=== PATIENT | female | born 1945 | race Caucasian/White ===

== ENCOUNTER → 2019-04-10 | Day surgery (SDC) | payer MEDICARE, BC ==
[~2019-04-10] MED LIST: Lactated Ringers 1,000 ML IV SCH; Lidocaine 1% 4 ML ONE; Lidocaine 1%/Sod Bicarbonate in NS 8.4% 1 ML Syringe IDERM PRN; Midazolam 1 MG/ML 2 ML SDV ONE; Propofol 200 MG/20 ML SDV ONE; Sodium Chloride 0.9% 10 ML Syringe FLUSH PRN; fentaNYL 100 MCG/2 ML SDV ONE
--- NOTE | 2019-04-10 07:55 | PCM.PREANE ---
Preanesthetic Assessment - Anesthesia/Transfusion/Family Hx Anesthesia History: Prior Anesthesia Reaction Type of Anesthesia Reaction: Excessive Nausea/Vomiting Family History of Anesthesia Reaction: No Transfusion History: No Prior Transfusion(s) Intubation History: Unknown - Review of Systems General: No Symptoms Pulmonary: No Symptoms Cardiovascular: No Symptoms Gastrointestinal: No Symptoms (GERD- occasionally takes tums) Neurological: No Symptoms (History of vertigo), Dizziness Other: Reports: Thyroid Problems - Physical Assessment NPO Status Date: 04/10/19 NPO Status Time: 04:30 Vital Signs: Last Vital Signs Temp 36.4 C 04/10/19 07:00 Pulse 67 04/10/19 07:00 Resp 16 04/10/19 07:00 BP 134/62 04/10/19 07:00 Pulse Ox 99 04/10/19 07:00 Height: 1.57 m Weight: 53.524 kg ASA Class: 2 Mental Status: Alert & Oriented x3 Airway Class: Mallampati = 2 Dentition: Reports: Normal Dentition, Caries Thyro-Mental Finger Breadths: 3 Mouth Opening Finger Breadths: 3 ROM/Head Extension: Full Lungs: Clear to Auscultation, Normal Respiratory Effort Cardiovascular: Regular Rate, Regular Rhythm, No Murmurs - Imaging/EKG Impressions: EKG: SR rate=55 CXR: Emphysematous change - Allergies Allergies/Adverse Reactions: Allergies Allergy/AdvReac Type Severity Reaction Status Date / Time Iodinated Contrast Media Allergy Hives Verified 04/09/19 15:13 Sulfa (Sulfonamide Allergy Hives Verified 04/09/19 15:13 Antibiotics) - Anesthesia Plan Pre-Op Medication Ordered: None - Acknowledgements Anesthesia Type Planned: MAC Pt an Appropriate Candidate for the Planned Anesthesia: Yes Alternatives and Risks of Anesthesia Discussed w Pt/Guardian: Yes Pt/Guardian Understands and Agrees with Anesthesia Plan: Yes PreAnesthesia Questionnaire HEENT History: Reports: Impaired Vision, Other (See Below) Other HEENT History: cataract surgery, wears glasses, history of burning tongue syndrome Cardiovascular History: Reports: Other (See Below) Other Cardiovascular History: chest wall pain Respiratory History: Reports: None Gastrointestinal History: Reports: Chronic Constipation, Colon Polyp Genitourinary History: Reports: None 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 (See Below) Other OB/BYN History: atrophic vaginitis Musculoskeletal History: Reports: Osteoporosis Neurological History: Reports: None Psychiatric History: Reports: Other (See Below) Other Psychiatric History: contact dermatitis, herpes zoster, onchomycosis, skin infection Endocrine/Metabolic History: Reports: Hypothyroidism Hematologic History: Reports: None Immunologic History: Reports: None Oncologic (Cancer) History: Reports: None Dermatologic History: Reports: None - Past Surgical History Head Surgeries/Procedures: Reports: None Cardiovascular Surgical History: Reports: None Respiratory Surgical History: Reports: None GI Surgical History: Reports: Appendectomy, Colonoscopy Female Surgical History: Reports: Hysterectomy, Oophorectomy Male Surgical History: Reports: None Endocrine Surgical History: Reports: None Neurological Surgical History: Reports: None Musculoskeletal Surgical History: Reports: Other (See Below) Other Musculoskeletal Surgeries/Procedures:: foot surgery, neck surgery Oncologic Surgical History: Reports: None Dermatological Surgical History: Reports: None - SUBSTANCE USE Smoking Status *Q: Never Smoker Recreational Drug Use History: No - HOME MEDS Home Medications: Home Meds Alendronate [Fosamax] 35 mg PO Q7D 04/09/19 [History] Aspirin [Ecotrin EC] 81 mg PO DAILY 04/09/19 [History] Calcium Carbonate/Vitamin D3 [Calcium 600-Vit D3 500 Softgel] 1 cap PO TID 04/09 [History] Flaxseed 1 dose PO QAM 04/09/19 [History] Levothyroxine [Synthroid] 44 mcg PO TUTH 04/09/19 [History] Levothyroxine [Synthroid] 88 mcg PO SUMOWEFRSA 04/09/19 [History] Lutein 10 mg PO DAILY 04/09/19 [History] Multivitamin [Daily Armand] 1 tab PO DAILY 04/09/19 [History] Psyllium Husk [Metamucil] 1 dose PO QAM 04/09/19 [History] - CURRENT (IN HOUSE) MEDS Current Meds: Current Medications Lactated Ringer's (Ringers, Lactated) 1,000 mls @ 125 mls/hr IV ASDIRECTED ARTHUR Stop: 04/10/19 23:00 Last Admin: 04/10/19 07:22 Dose: 125 mls/hr Lidocaine/Sodium Bicarbonate (Buffered Lidocaine 1% In Ns 8.4%) 0.25 ml IDERM ONETIME PRN PRN Reason: Prior to IV Start Stop: 04/10/19 18:00 Last Admin: 04/10/19 07:22 Dose: 0.25 ml Sodium Chloride (Saline Flush) 10 ml FLUSH ASDIRECTED PRN PRN Reason: Keep Vein Open Stop: 04/10/19 18:00 Discontinued Medications Fentanyl (Sublimaze) Confirm Administered Dose 100 mcg .ROUTE .STK-MED ONE Stop: 04/10/19 07:43 Lidocaine HCl (Xylocaine-Mpf 1%) Confirm Administered Dose 4 mls @ as directed .ROUTE .STK-MED ONE Stop: 04/10/19 07:43 Midazolam HCl (Versed 1 Mg/Ml) Confirm Administered Dose 2 mg .ROUTE .STK-MED ONE Stop: 04/10/19 07:43 Propofol (Diprivan 20 Ml) Confirm Administered Dose 200 mg .ROUTE .STK-MED ONE Stop: 04/10/19 07:43
--- NOTE | 2019-04-10 08:45 | PCM48HPAN ---
Post Anesthesia Note - EVALUATION WITHIN 48HRS OF ANESTHETIC Vital Signs in Normal Range: Yes Patient Participated in Evaluation: Yes Respiratory Function Stable: Yes Airway Patent: Yes Cardiovascular Function Stable: Yes Hydration Status Stable: Yes Pain Control Satisfactory: Yes Nausea and Vomiting Control Satisfactory: Yes Mental Status Recovered: Yes Vital Signs: Last Vital Signs Temp 36.4 C 04/10/19 07:00 Pulse 67 04/10/19 07:00 Resp 16 04/10/19 07:00 BP 134/62 04/10/19 07:00 Pulse Ox 99 04/10/19 07:00 - COMMENTS/OBSERVATIONS Free Text/Narrative:: no anesthesia complications noted
--- NOTE | 2019-04-10 08:49 | PCM.PRNOTE ---
- Free Text/Narrative Note: Date: 04/10/2019 Endoscopist: Eddie Jarvis MD Procedure: screening colonoscopy Findings: excellent prep. Cecum reached. Two subcentimeter polypoid lesions in the sigmoid biopsied with cold forceps. Internal hemorrhoids and small soft anal skin tag. Detailed Report: The patient was taken to the GI suite and placed in left lateral decubitus position. Timeout was performed and monitored sedation initiated. Visual inspection of anus revealed soft anterior skin tag. Digital rectal exam was unremarkable. The colonoscope was advanced to the cecum. Prep was excellent. All mucosal surfaces were carefully inspected on slow retraction of the scope. Small subcentimeter sessile polypoid lesions that resembled hyperplastic polyps in the sigmoid colon were biopsied with cold forceps. No diverticular disease noted. Internal hemorrhoids noted on retroflexion of the scope in the rectum. The patient tolerated the procedure well. Eddie Jarvis MD General Surgery
== END | disposition home or self-care (01) ==
LOC: JD.SDS 06:57
PROVIDERS: ATTEND Surgery
DX: Z12.11 Encounter for screening for malignant neoplasm of colon (principal); K64.8 Other hemorrhoids; K64.4 Residual hemorrhoidal skin tags; K63.5 Polyp of colon; E03.9 Hypothyroidism, unspecified; M81.0 Age-related osteoporosis without current pathological fracture; Z86.010 Personal history of colon polyps; Z88.2 Allergy status to sulfonamides; Z91.041 Radiographic dye allergy status; Z79.82 Long term (current) use of aspirin; Z79.899 Other long term (current) drug therapy
CPT/HCPCS: G0121; J2001; J2704; J3010; J7120; J2250

== ENCOUNTER 2020-06-25 21:58 | Emergency (ER) | payer MEDICARE, BC ==
[2020-06-25] MEDS ORDERED: Ondansetron 4 MG/2 ML SDV IVPUSH ONE (22:15)
--- NOTE | 2020-06-25 22:23 | EDM.PDOC ---
ED HPI GENERAL MEDICAL PROBLEM - General Chief Complaint: Cardiovascular Problem Stated Complaint: RHB Time Seen by Provider: 06/25/20 22:15 Source of Information: Reports: Patient History Limitations: Reports: No Limitations - History of Present Illness INITIAL COMMENTS - FREE TEXT/NARRATIVE: The patient presents with palpitations. She was at home with her watching TV and she felt her heart racing and pounding. She checked her heart rate and it was 120s and it stayed that way for about an hour. She then got nauseated and vomited. She has no fever, chills, cough, congestion, chest pain, shortness of breath or abdominal pain. This has never happened to her before and she feels good now. She has a history of hypothyroidism. She has no history of heart disease or hypertension. Onset: Sudden Duration: Hour(s): Severity: Moderate Improves with: Reports: None Worsens with: Reports: None Associated Symptoms: Reports: Nausea/Vomiting. Denies: Chest Pain, Cough, Fever/Chills, Headaches, Shortness of Breath - Related Data Allergies Allergy/AdvReac Type Severity Reaction Status Date / Time Iodinated Contrast Media Allergy Severe Hives Verified 06/25/20 22:07 nitrofurantoin Allergy Severe Hives Verified 06/25/20 22:07 [From Macrobid] Sulfa (Sulfonamide Allergy Severe Hives Verified 06/25/20 22:07 Antibiotics) Home Meds: Home Meds Alendronate [Fosamax] 35 mg PO Q7D 04/09/19 [History] Aspirin [Ecotrin EC] 81 mg PO DAILY 04/09/19 [History] Calcium Carbonate/Vitamin D3 [Calcium 600-Vit D3 500 Softgel] 1 cap PO TID 04/09/19 [History] Flaxseed 1 dose PO QAM 04/09/19 [History] Levothyroxine [Synthroid] 44 mcg PO TUTH 04/09/19 [History] Levothyroxine [Synthroid] 88 mcg PO SUMOWEFRSA 04/09/19 [History] Lutein 10 mg PO DAILY 04/09/19 [History] Multivitamin [Daily Armand] 1 tab PO DAILY 04/09/19 [History] Psyllium Husk [Metamucil] 1 dose PO QAM 04/09/19 [History] Past Medical History HEENT History: Reports: Impaired Vision, Other (See Below) Other HEENT History: cataract surgery, wears glasses, history of burning tongue syndrome Cardiovascular History: Reports: Other (See Below) Other Cardiovascular History: chest wall pain Respiratory History: Reports: None Gastrointestinal History: Reports: Chronic Constipation, Colon Polyp Genitourinary History: Reports: None 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 (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) 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: atrophic vaginitis Musculoskeletal History: Reports: Osteoporosis Neurological History: Reports: None Psychiatric History: Reports: Other (See Below) Other Psychiatric History: contact dermatitis, herpes zoster, onchomycosis, skin infection Endocrine/Metabolic History: Reports: Hypothyroidism Hematologic History: Reports: None Immunologic History: Reports: None Oncologic (Cancer) History: Reports: None Dermatologic History: Reports: None - Past Surgical History Head Surgeries/Procedures: Reports: None Cardiovascular Surgical History: Reports: None Respiratory Surgical History: Reports: None GI Surgical History: Reports: Appendectomy, Colonoscopy Female Surgical History: Reports: Hysterectomy, Oophorectomy Endocrine Surgical History: Reports: None Neurological Surgical History: Reports: None Musculoskeletal Surgical History: Reports: Other (See Below) Other Musculoskeletal Surgeries/Procedures:: foot surgery, neck surgery Oncologic Surgical History: Reports: None Dermatological Surgical History: Reports: None Social & Family History - Tobacco Use Tobacco Use Status *Q: Never Tobacco User - Caffeine Use Caffeine Use: Reports: Coffee - Recreational Drug Use Recreational Drug Use: No ED ROS GENERAL - Review of Systems Review Of Systems: See Below Constitutional: Reports: No Symptoms HEENT: Reports: No Symptoms Respiratory: Reports: No Symptoms Cardiovascular: Reports: Palpitations. Denies: Chest Pain Endocrine: Reports: No Symptoms GI/Abdominal: Reports: Nausea, Vomiting. Denies: Abdominal Pain, Diarrhea : Reports: No Symptoms Musculoskeletal: Reports: No Symptoms Skin: Reports: No Symptoms ED EXAM, GENERAL - Physical Exam Exam: See Below Exam Limited By: No Limitations General Appearance: Alert, No Apparent Distress Ears: Normal External Exam Nose: Normal Inspection Head: Atraumatic, Normocephalic Neck: Normal Inspection Respiratory/Chest: No Respiratory Distress, Lungs Clear, Normal Breath Sounds Cardiovascular: Regular Rate, Rhythm, No Edema, No Murmur GI/Abdominal: Soft, Non-Tender, No Organomegaly, No Mass Back Exam: Normal Inspection #1 Interpretation EKG Date: 06/25/20 Time: 22:08 Rhythm: NSR Rate (Beats/Min): 96 [place]: Normal P-Wave: Present QRS: Normal ST-T: Normal QT: Normal Course - Vital Signs Last Recorded V/S: Last Vital Signs Temp 98.2 F 06/25/20 22:04 Pulse 101 H 06/25/20 22:04 Resp 16 06/25/20 22:04 BP 154/74 H 06/25/20 22:04 Pulse Ox 100 06/25/20 22:04 - Orders/Labs/Meds Orders: Active Orders 24 hr Category Date Time Status Cardiac Monitoring [RC] . DIRECTED Care 06/25/20 22:15 Active EKG 12 Lead [EKG Documentation Completion] [RC] URGENT Care 06/25/20 22:00 Active Holter Monitor 48 Hours [RC] .PRN Care 06/25/20 23:20 Ordered Labs: Laboratory Tests 06/25/20 06/25/20 Range/Units 22:28 22:28 WBC 6.18 (3.98-10.04) K/mm3 RBC 4.38 (3.98-5.22) M/mm3 Hgb 14.0 (11.2-15.7) gm/dl Hct 42.4 (34.1-44.9) % MCV 96.8 H (79.4-94.8) fl MCH 32.0 (25.6-32.2) pg MCHC 33.0 (32.2-35.5) g/dl RDW Std Deviation 49.5 H (36.4-46.3) fL Plt Count 247 (182-369) K/mm3 MPV 9.2 L (9.4-12.3) fl Neut % (Auto) 67.0 (34.0-71.1) % Lymph % (Auto) 19.9 (19.3-51.7) % [place] % (Auto) 9.4 (4.7-12.5) % Eos % (Auto) 3.1 (0.7-5.8) Baso % (Auto) 0.3 (0.1-1.2) % Neut # (Auto) 4.14 (1.56-6.13) K/mm3 Lymph # (Auto) 1.23 (1.18-3.74) K/mm3 [place] # (Auto) 0.58 H (0.24-0.36) K/mm3 Eos # (Auto) 0.19 (0.04-0.36) K/mm3 Baso # (Auto) 0.02 (0.01-0.08) K/mm3 Sodium 143 (136-145) mEq/L Potassium 3.4 L (3.5-5.1) mEq/L Chloride 107 (98-107) mEq/L Carbon Dioxide 25 (21-32) mEq/L Anion Gap 14.4 (5-15) BUN 13 (7-18) mg/dL Creatinine 0.8 (0.55-1.02) mg/dL Est Cr Clr Drug Dosing 49.49 mL/min Estimated GFR (MDRD) > 60 (>60) mL/min BUN/Creatinine Ratio 16.3 (14-18) Glucose 146 H (83-115) mg/dL Calcium 8.8 (8.5-10.1) mg/dL Magnesium 1.8 (1.8-2.4) mg/dl Total Bilirubin 0.2 (0.2-1.0) mg/dL AST 13 L (15-37) U/L ALT 25 (14-59) U/L Alkaline Phosphatase 71 (46-116) U/L Troponin I < 0.017 (0.00-0.056) ng/mL Total Protein 6.8 (6.4-8.2) g/dl Albumin 3.6 (3.4-5.0) g/dl Globulin 3.2 gm/dL Albumin/Globulin Ratio 1.1 (1-2) TSH 3rd Generation 3.012 (0.358-3.74) uIU/mL Meds: Medications Discontinued Medications Generic Name Dose Route Start Last Admin Trade Name Alexq PRN Reason Stop Dose Admin Ondansetron HCl 4 mg 06/25/20 22:15 Zofran IVPUSH 06/25/20 22:16 ONETIME ONE - Re-Assessments/Exams Free Text/Narrative Re-Assessment/Exam: 06/25/20 22:23 I ordered an EKG and labs. Her EKG shows a NSR with no acute changes. I did offer her some zofran for nausea but she said she feels better and does not want any. 06/25/20 23:20 Her CBC and CMP look good. Her troponin is negative and her TSH is normal. I will get her a holter monitor and have her follow up with Kathy Keller in clinic. Departure - Departure Time of Disposition: 23:25 Disposition: Home, Self-Care 01 Condition: Good Clinical Impression: Palpitations Referrals: Kathy Keller, FLEET TECHNICIAN [Primary Care Provider] - 1 Day Forms: ED Department Discharge Additional Instructions: Take your medications as prescribed. Wear the holter monitor for 2 days. Follow up with Kathy tomorrow. Please return if you are worse. Sepsis Event Note (ED) - Evaluation Sepsis Screening Result: No Definite Risk - Focused Exam Vital Signs: Vital Signs Temp Pulse Resp BP Pulse Ox 06/25/20 22:04 98.2 F 101 H 16 154/74 H 100 - My Orders Last 24 Hours: My Active Orders 06/25/20 22:00 EKG 12 Lead [EKG Documentation Completion] [RC] URGENT 06/25/20 22:15 Cardiac Monitoring [RC] . DIRECTED 06/25/20 23:20 Holter Monitor 48 Hours [RC] .PRN - Assessment/Plan Last 24 Hours: My Active Orders 06/25/20 22:00 EKG 12 Lead [EKG Documentation Completion] [RC] URGENT 06/25/20 22:15 Cardiac Monitoring [RC] . DIRECTED 06/25/20 23:20 Holter Monitor 48 Hours [RC] .PRN
== END 2020-06-25 23:26 | disposition home or self-care (01) ==
LOC: JD.ED 21:58
DX: R00.2 Palpitations (principal); E03.9 Hypothyroidism, unspecified; Z91.041 Radiographic dye allergy status; Z88.1 Allergy status to other antibiotic agents; Z88.2 Allergy status to sulfonamides; Z79.82 Long term (current) use of aspirin; Z79.899 Other long term (current) drug therapy
CPT/HCPCS: 36415; 80053; 83735; 84443; 84484; 85025; 93005; 93010; 93225; 93226; 99284; 99285-25

== ENCOUNTER 2020-11-08 14:08 | Observation (INO) | payer MEDICARE, BC ==
[2020-11-08] MEDS ORDERED: Sodium Chloride 0.9% 10 ML Syringe FLUSH PRN (14:41)
[2020-11-08] MEDS ORDERED: Sodium Chloride 0.9% 500 ML IV SCH (14:45)
--- NOTE | 2020-11-08 16:02 | EDM.PDOC ---
ED HPI GENERAL MEDICAL PROBLEM - General Chief Complaint: General Stated Complaint: WEAK AND SHAKIE Time Seen by Provider: 11/08/20 14:20 Source of Information: Reports: Patient History Limitations: Reports: No Limitations - History of Present Illness INITIAL COMMENTS - FREE TEXT/NARRATIVE: The patient presents with generalized weakness and shakiness. This has been going on for a few weeks. Her about a month ago. She admits to not eating or drinking that much. She does feel down. She has no headache, fever, chills, cough, chest pain, shortness of breath, abdominal pain, nausea or vomiting. She has no pain with urination. Onset: Gradual Duration: Week(s): Severity: Moderate Improves with: Reports: None Worsens with: Reports: None Associated Symptoms: Reports: No Other Symptoms - Related Data Allergies Allergy/AdvReac Type Severity Reaction Status Date / Time chlorzoxazone Allergy Severe Rash Verified 11/08/20 14:27 [From Parafon Forte] doxycycline [From Vibramycin] Allergy Severe Rash Verified 11/08/20 14:27 Iodinated Contrast Media Allergy Severe Hives Verified 11/08/20 14:27 nitrofurantoin Allergy Severe Hives Verified 11/08/20 14:27 [From Macrobid] ofloxacin [From Floxin] Allergy Severe Rash Verified 11/08/20 14:27 phenazopyridine [From Azo] Allergy Severe Rash Verified 11/08/20 14:27 Sulfa (Sulfonamide Allergy Severe Hives Verified 11/08/20 14:27 Antibiotics) Gadolinium-Containing AdvReac Severe Vomiting Verified 11/08/20 14:27 Contrast Medi Home Meds: Home Meds Alendronate [Fosamax] 35 mg PO Q7D 04/09/19 [History] Aspirin [Ecotrin EC] 81 mg PO DAILY 04/09/19 [History] Calcium Carbonate/Vitamin D3 [Calcium 600-Vit D3 500 Softgel] 1 cap PO TID 04/09/19 [History] Flaxseed 1 dose PO QAM 04/09/19 [History] Levothyroxine [Synthroid] 44 mcg PO TUTH 04/09/19 [History] Levothyroxine [Synthroid] 88 mcg PO SUMOWEFRSA 04/09/19 [History] Lutein 10 mg PO DAILY 04/09/19 [History] Multivitamin [Daily Armand] 1 tab PO DAILY 04/09/19 [History] Psyllium Husk [Metamucil] 1 dose PO QAM 04/09/19 [History] Past Medical History HEENT History: Reports: Impaired Vision, Other (See Below) Other HEENT History: cataract surgery, wears glasses, history of burning tongue syndrome Cardiovascular History: Reports: Other (See Below) Other Cardiovascular History: chest wall pain Respiratory History: Reports: None Gastrointestinal History: Reports: Chronic Constipation, Colon Polyp Genitourinary History: Reports: None PREVENTIVE MEDICINE PHYSICIAN History: Reports: Other (See Below) Other PREVENTIVE MEDICINE PHYSICIAN History: atrophic vaginitis Musculoskeletal History: Reports: Osteoporosis Neurological History: Reports: None Psychiatric History: Reports: Other (See Below) Other Psychiatric History: contact dermatitis, herpes zoster, onchomycosis, skin infection Endocrine/Metabolic History: Reports: Hypothyroidism Hematologic History: Reports: None Immunologic History: Reports: None Oncologic (Cancer) History: Reports: None Dermatologic History: Reports: None - Past Surgical History GI Surgical History: Reports: Appendectomy, Colonoscopy Female Surgical History: Reports: Hysterectomy, Oophorectomy Musculoskeletal Surgical History: Reports: Other (See Below) Other Musculoskeletal Surgeries/Procedures:: foot surgery, neck surgery Social & Family History - Tobacco Use Tobacco Use Status *Q: Never Tobacco User - Caffeine Use Caffeine Use: Reports: None - Recreational Drug Use Recreational Drug Use: No ED ROS GENERAL - Review of Systems Review Of Systems: See Below Constitutional: Reports: No Symptoms HEENT: Reports: No Symptoms Respiratory: Reports: No Symptoms Cardiovascular: Reports: No Symptoms Endocrine: Reports: No Symptoms GI/Abdominal: Reports: No Symptoms : Reports: No Symptoms Musculoskeletal: Reports: No Symptoms Skin: Reports: No Symptoms Neurological: Reports: Other (shaky and generalized weakness) ED EXAM, GENERAL - Physical Exam Exam: See Below Exam Limited By: No Limitations General Appearance: Alert, No Apparent Distress Ears: Normal External Exam Nose: Normal Inspection Head: Atraumatic, Normocephalic Neck: Normal Inspection Respiratory/Chest: No Respiratory Distress, Lungs Clear, Normal Breath Sounds Cardiovascular: Regular Rate, Rhythm, No Edema, No Murmur GI/Abdominal: Soft, Non-Tender, No Organomegaly, No Mass Back Exam: Normal Inspection Extremities: Normal Inspection Neurological: Alert, Oriented, No Motor/Sensory Deficits #1 Interpretation EKG Date: 11/08/20 Time: 14:53 Rhythm: NSR Rate (Beats/Min): 65 [place]: Normal P-Wave: Present QRS: Normal ST-T: Normal QT: Normal Course - Vital Signs Last Recorded V/S: Last Vital Signs Temp 96.5 F L 11/08/20 14:20 Pulse 70 11/08/20 14:20 Resp 14 11/08/20 14:20 BP 134/67 11/08/20 14:20 Pulse Ox 98 11/08/20 14:20 - Orders/Labs/Meds Orders: Active Orders 24 hr Category Date Time Status Patient Status [ADT] Routine ADT 11/08/20 17:14 Active Activity as Tolerated [RC] .Routine Care 11/08/20 17:14 Active Antiembolic Devices [RC] PER UNIT ROUTINE Care 11/08/20 17:15 Active Cardiac Monitoring [RC] . DIRECTED Care 11/08/20 14:41 Active EKG Documentation Completion [RC] STAT Care 11/08/20 14:42 Active Oxygen Therapy [RC] PRN Care 11/08/20 17:14 Active Peripheral IV Care [RC] . DIRECTED Care 11/08/20 14:42 Active RT Incentive Spirometry [RC] Q1HWA Care 11/08/20 17:14 Active Vital Signs [RC] Q4H Care 11/08/20 17:14 Active Clear Liquid Diet [DIET] Diet 11/08/20 Breakfast Active Nothing Per Oral Diet [DIET] Diet 11/09/20 Breakfast Active BASIC METABOLIC PANEL,BMP [CHEM] AM Lab 11/09/20 05:11 Ordered CBC WITH AUTO DIFF [HEME] AM Lab 11/09/20 05:11 Ordered Lactated Ringers [Ringers, Lactated] 1,000 ml Med 11/08/20 17:15 Active IV ASDIRECTED Levothyroxine [Synthroid] Med 11/11/20 06:00 Active 44 mcg PO TuTh@0600 Levothyroxine [Synthroid] Med 11/08/20 17:30 Active 88 mcg PO SuMoWeFrSa@0600 Sodium Chloride 0.9% [Normal Saline] 500 ml Med 11/08/20 14:45 Active IV .BOLUS Sodium Chloride 0.9% [Saline Flush] Med 11/08/20 14:41 Active 10 ml FLUSH ASDIRECTED PRN Peripheral IV Insertion Adult [OM.PC] Stat Oth 11/08/20 14:41 Ordered Schedule Procedure [COMM] Routine Oth 11/09/20 08:00 Ordered Sequential Compression Device [OM.PC] Routine Oth 11/08/20 17:14 Ordered Resuscitation Status Routine Resus Stat 11/08/20 17:14 Ordered Medication Orders Sodium Chloride (Normal Saline) 500 mls @ 1,000 mls/hr IV .BOLUS ARTHUR Last Admin: 11/08/20 15:00 Dose: 1,000 mls/hr Documented by: SEBASTIAN Lactated Ringer's (Ringers, Lactated) 1,000 mls @ 100 mls/hr IV ASDIRECTED ARTHUR Levothyroxine Sodium (Levothyroxine 88 Mcg Tab) 44 mcg PO TuTh@0600 ARTHUR Levothyroxine Sodium (Levothyroxine 88 Mcg Tab) 88 mcg PO SuMoWeFrSa@0600 ARTHUR Sodium Chloride (Sodium Chloride 0.9% 10 Ml Syringe) 10 ml FLUSH ASDIRECTED PRN PRN Reason: Keep Vein Open Last Admin: 11/08/20 15:00 Dose: 10 ml Documented by: SEBASTIAN Labs: Laboratory Tests 11/08/20 11/08/20 11/08/20 Range/Units 15:02 15:02 15:02 WBC 6.72 (3.98-10.04) K/mm3 RBC 2.86 L (3.98-5.22) M/mm3 Hgb 9.2 L D (11.2-15.7) gm/dl Hct 28.5 L (34.1-44.9) % MCV 99.7 H (79.4-94.8) fl MCH 32.2 (25.6-32.2) pg MCHC 32.3 (32.2-35.5) g/dl RDW Std Deviation 48.8 H (36.4-46.3) fL Plt Count 278 (182-369) K/mm3 MPV 9.7 (9.4-12.3) fl Neut % (Auto) 80.0 H (34.0-71.1) % Lymph % (Auto) 12.4 L (19.3-51.7) % Ashe % (Auto) 6.5 (4.7-12.5) % Eos % (Auto) 0.4 L (0.7-5.8) Baso % (Auto) 0.4 (0.1-1.2) % Neut # (Auto) 5.37 (1.56-6.13) K/mm3 Lymph # (Auto) 0.83 L (1.18-3.74) K/mm3 Ashe # (Auto) 0.44 H (0.24-0.36) K/mm3 Eos # (Auto) 0.03 L (0.04-0.36) K/mm3 Baso # (Auto) 0.03 (0.01-0.08) K/mm3 Sodium 144 (136-145) mEq/L Potassium 4.4 (3.5-5.1) mEq/L Chloride 109 H (98-107) mEq/L Carbon Dioxide 25 (21-32) mEq/L Anion Gap 14.4 (5-15) BUN 16 (7-18) mg/dL Creatinine 0.8 (0.55-1.02) mg/dL Est Cr Clr Drug Dosing 49.14 mL/min Estimated GFR (MDRD) > 60 (>60) mL/min BUN/Creatinine Ratio 20.0 H (14-18) Glucose 94 (70-99) mg/dL Calcium 8.3 L (8.5-10.1) mg/dL Magnesium 2.2 (1.8-2.4) mg/dL Iron 32 L (50-170) ug/dL TIBC 266 (100-400) ug/dL % Saturation 12 L (20-55) % Transferrin 213 (202-364) mg/dL Total Bilirubin 0.2 (0.2-1.0) mg/dL AST 15 (15-37) U/L ALT 17 (14-59) U/L Alkaline Phosphatase 44 L (46-116) U/L Troponin I < 0.017 (0.00-0.056) ng/mL Total Protein 6.2 L (6.4-8.2) g/dl Albumin 3.4 (3.4-5.0) g/dl Globulin 2.8 gm/dL Albumin/Globulin Ratio 1.2 (1-2) SARS-CoV-2 RNA (ZO) (NEGATIVE) 11/08/20 Range/Units 18:50 WBC (3.98-10.04) K/mm3 RBC (3.98-5.22) M/mm3 Hgb (11.2-15.7) gm/dl Hct (34.1-44.9) % MCV (79.4-94.8) fl MCH (25.6-32.2) pg MCHC (32.2-35.5) g/dl RDW Std Deviation (36.4-46.3) fL Plt Count (182-369) K/mm3 MPV (9.4-12.3) fl Neut % (Auto) (34.0-71.1) % Lymph % (Auto) (19.3-51.7) % Ashe % (Auto) (4.7-12.5) % Eos % (Auto) (0.7-5.8) Baso % (Auto) (0.1-1.2) % Neut # (Auto) (1.56-6.13) K/mm3 Lymph # (Auto) (1.18-3.74) K/mm3 Ashe # (Auto) (0.24-0.36) K/mm3 Eos # (Auto) (0.04-0.36) K/mm3 Baso # (Auto) (0.01-0.08) K/mm3 Sodium (136-145) mEq/L Potassium (3.5-5.1) mEq/L Chloride (98-107) mEq/L Carbon Dioxide (21-32) mEq/L Anion Gap (5-15) BUN (7-18) mg/dL Creatinine (0.55-1.02) mg/dL Est Cr Clr Drug Dosing mL/min Estimated GFR (MDRD) (>60) mL/min BUN/Creatinine Ratio (14-18) Glucose (70-99) mg/dL Calcium (8.5-10.1) mg/dL Magnesium (1.8-2.4) mg/dL Iron (50-170) ug/dL TIBC (100-400) ug/dL % Saturation (20-55) % Transferrin (202-364) mg/dL Total Bilirubin (0.2-1.0) mg/dL AST (15-37) U/L ALT (14-59) U/L Alkaline Phosphatase (46-116) U/L Troponin I (0.00-0.056) ng/mL Total Protein (6.4-8.2) g/dl Albumin (3.4-5.0) g/dl Globulin gm/dL Albumin/Globulin Ratio (1-2) SARS-CoV-2 RNA (ZO) Negative (NEGATIVE) Meds: Medications Generic Name Dose Route Start Last Admin Trade Name Freq PRN Reason Stop Dose Admin Sodium Chloride 500 mls @ 1,000 mls/hr 11/08/20 14:45 11/08/20 15:00 Normal Saline IV 1,000 mls/hr .BOLUS ARTHUR Administration Lactated Ringer's 1,000 mls @ 100 mls/hr 11/08/20 17:15 Ringers, Lactated IV ASDIRECTED ARTHUR Levothyroxine Sodium 44 mcg 11/11/20 06:00 Levothyroxine 88 Mcg Tab PO TuTh@0600 ARTHUR Levothyroxine Sodium 88 mcg 11/08/20 17:30 Levothyroxine 88 Mcg Tab PO SuMoWeFrSa@0600 ARTHUR Sodium Chloride 10 ml 11/08/20 14:41 11/08/20 15:00 Sodium Chloride 0.9% 10 Ml Syringe FLUSH 10 ml ASDIRECTED PRN Administration Keep Vein Open Discontinued Medications Generic Name Dose Route Start Last Admin Trade Name Freq PRN Reason Stop Dose Admin Polyethylene Glycol/Electrolytes 4,000 ml 11/08/20 17:18 Polyethylene Glycol/Electrolytes 4,000 Ml Bottle PO 11/08/20 17:19 ONETIME ONE - Re-Assessments/Exams Free Text/Narrative Re-Assessment/Exam: 11/08/20 16:05 I ordered an IV NS 500ml bolus, EKG, and labs. Her EKG shows a NSR with no acute changes. 11/08/20 16:05 Her Hgb is low at 9.2. It has never been that low before. I have ordered iron studies. Her CMP looks good. Her troponin is normal. 11/08/20 16:08 Her iron is low at 32. The rest of her studies look good. 11/08/20 16:39 I did a rectal exam and it was guiac positive. I will get her on some protonix and some iron and have her follow up with Dr Jarvis. 11/08/20 19:[address] Jarvis and he thought it was a better idea to admit her and do a bowel prep and do the scope sooner. He will come see her. That is ever better and the patient was agreeable to that. Departure - Departure Time of Disposition: 20:00 Disposition: Admitted As Inpatient 64 Condition: Fair Clinical Impression: Weakness GI bleed Qualifiers: GI bleed type/associated pathology: unspecified gastrointestinal hemorrhage type Qualified Code(s): K92.2 - Gastrointestinal hemorrhage, unspecified Anemia Qualifiers: Anemia type: other cause Other causes of anemia: other cause, not classified Qualified Code(s): D64.89 - Other specified anemias - Discharge Information Sepsis Event Note (ED) - Evaluation Sepsis Screening Result: No Definite Risk - Focused Exam Vital Signs: Vital Signs Temp Pulse Resp BP Pulse Ox 11/08/20 14:20 96.5 F L 70 14 134/67 98 - My Orders Last 24 Hours: My Active Orders 11/08/20 14:41 Cardiac Monitoring [RC] . DIRECTED Sodium Chloride 0.9% [Saline Flush] 10 ml FLUSH ASDIRECTED PRN Peripheral IV Insertion Adult [OM.PC] Stat 11/08/20 14:42 EKG Documentation Completion [RC] STAT Peripheral IV Care [RC] . DIRECTED 11/08/20 14:45 Sodium Chloride 0.9% [Normal Saline] 500 ml IV .BOLUS - Assessment/Plan Last 24 Hours: My Active Orders 11/08/20 14:41 Cardiac Monitoring [RC] . DIRECTED Sodium Chloride 0.9% [Saline Flush] 10 ml FLUSH ASDIRECTED PRN Peripheral IV Insertion Adult [OM.PC] Stat 11/08/20 14:42 EKG Documentation Completion [RC] STAT Peripheral IV Care [RC] . DIRECTED 11/08/20 14:45 Sodium Chloride 0.9% [Normal Saline] 500 ml IV .BOLUS
[2020-11-08] MEDS ORDERED: Polyethylene Glycol/Electrolytes 4,000 ML Bottle PO ONE ×2 (17:18→21:45)
--- NOTE | 2020-11-08 17:25 | PCM.HP.2 ---
H&P History of Present Illness - General Date of Service: 11/08/20 Admit Problem/Dx: Admission Diagnosis/Problem Admission Diagnosis/Problem Anemia Source of Information: Patient History Limitations: Reports: No Limitations - History of Present Illness Initial Comments - Free Text/Narative: Mrs. Palm is a 74 yo women who presents to the ER with shakiness, weakness, and malaise. Initial lab work in the ER shows anemia of 9.2 g/dL, down from baseline which is around 14-15 as recently as a few months ago. Labs show iron deficiency anemia. On review, she does reports some dark stools lately. She had a colonoscopy here in April 2019; no adenomatous polyps or diverticula were identified. She does not take blood thinners. She takes a baby aspirin, and has not been taking any other NSAIDs lately. She denies abdominal pain. She has not had an upper endoscopy and has no history of peptic ulcer disease. She has been stressed lately, dealing with the of her about a month ago. - Related Data Allergies/Adverse Reactions: Allergies Allergy/AdvReac Type Severity Reaction Status Date / Time chlorzoxazone Allergy Severe Rash Verified 11/08/20 14:27 [From Parafon Forte] doxycycline [From Vibramycin] Allergy Severe Rash Verified 11/08/20 14:27 Iodinated Contrast Media Allergy Severe Hives Verified 11/08/20 14:27 nitrofurantoin Allergy Severe Hives Verified 11/08/20 14:27 [From Macrobid] ofloxacin [From Floxin] Allergy Severe Rash Verified 11/08/20 14:27 phenazopyridine [From Azo] Allergy Severe Rash Verified 11/08/20 14:27 Sulfa (Sulfonamide Allergy Severe Hives Verified 11/08/20 14:27 Antibiotics) Gadolinium-Containing AdvReac Severe Vomiting Verified 11/08/20 14:27 Contrast Medi Home Medications: Home Meds Alendronate [Fosamax] 35 mg PO Q7D 04/09/19 [History] Aspirin [Ecotrin EC] 81 mg PO DAILY 04/09/19 [History] Calcium Carbonate/Vitamin D3 [Calcium 600-Vit D3 500 Softgel] 1 cap PO TID 04/09/19 [History] Flaxseed 1 dose PO QAM 04/09/19 [History] Levothyroxine [Synthroid] 44 mcg PO TUTH 04/09/19 [History] Levothyroxine [Synthroid] 88 mcg PO SUMOWEFRSA 04/09/19 [History] Lutein 10 mg PO DAILY 04/09/19 [History] Multivitamin [Daily Armand] 1 tab PO DAILY 04/09/19 [History] Psyllium Husk [Metamucil] 1 dose PO QAM 04/09/19 [History] Past Medical History HEENT History: Reports: Impaired Vision, Other (See Below) Other HEENT History: cataract surgery, wears glasses, history of burning tongue syndrome Cardiovascular History: Reports: Other (See Below) Other Cardiovascular History: chest wall pain Respiratory History: Reports: None Gastrointestinal History: Reports: Chronic Constipation, Colon Polyp Genitourinary History: Reports: None SLIVER CHOPPER History: Reports: Other (See Below) Other OB/BYN History: atrophic vaginitis Musculoskeletal History: Reports: Osteoporosis Neurological History: Reports: None Psychiatric History: Reports: Other (See Below) Other Psychiatric History: contact dermatitis, herpes zoster, onchomycosis, skin infection Endocrine/Metabolic History: Reports: Hypothyroidism Hematologic History: Reports: None Immunologic History: Reports: None Oncologic (Cancer) History: Reports: None Dermatologic History: Reports: None - Past Surgical History GI Surgical History: Reports: Appendectomy, Colonoscopy Female Surgical History: Reports: Hysterectomy, Oophorectomy Musculoskeletal Surgical History: Reports: Other (See Below) Other Musculoskeletal Surgeries/Procedures:: foot surgery, neck surgery Social & Family History - Tobacco Use Tobacco Use Status *Q: Never Tobacco User - Caffeine Use Caffeine Use: Reports: None - Recreational Drug Use Recreational Drug Use: No H&P Review of Systems - Review of Systems: Review Of Systems: See Below General: Reports: Malaise, Weakness, Fatigue HEENT: Reports: No Symptoms Pulmonary: Reports: No Symptoms Cardiovascular: Reports: No Symptoms Gastrointestinal: Reports: Melena Genitourinary: Reports: No Symptoms Musculoskeletal: Reports: No Symptoms Skin: Reports: No Symptoms Psychiatric: Reports: No Symptoms Hematologic/Lymphatic: Reports: Anemia Immunologic: Reports: No Symptoms Exam - Exam Exam: See Below - Vital Signs Vital Signs: Last Vital Signs Temp 35.8 C L 11/08/20 14:20 Pulse 70 11/08/20 14:20 Resp 14 11/08/20 14:20 BP 134/67 11/08/20 14:20 Pulse Ox 98 11/08/20 14:20 Weight: 52.027 kg - Exam Quality Assessment: Supplemental Oxygen General: Alert, Oriented, Cooperative HEENT: Conjunctiva Clear Neck: Supple, Trachea Midline Lungs: Clear to Auscultation, Normal Respiratory Effort Cardiovascular: Regular Rate, Regular Rhythm GI/Abdominal Exam: Soft Rectal (Female) Exam: Other (positive guaic in ER) Extremities: Normal Inspection Skin: Other (pale) Neuro Extensive - Mental Status: Alert, Oriented x3, Normal Mood/Affect Psychiatric: Normal Mood - Patient Data Lab Results Last 24 hrs: Laboratory Results - last 24 hr 11/08/20 11/08/20 11/08/20 Range/Units 15:02 15:02 15:02 WBC 6.72 (3.98-10.04) K/mm3 RBC 2.86 L (3.98-5.22) M/mm3 Hgb 9.2 L D (11.2-15.7) gm/dl Hct 28.5 L (34.1-44.9) % MCV 99.7 H (79.4-94.8) fl MCH 32.2 (25.6-32.2) pg MCHC 32.3 (32.2-35.5) g/dl RDW Std Deviation 48.8 H (36.4-46.3) fL Plt Count 278 (182-369) K/mm3 MPV 9.7 (9.4-12.3) fl Neut % (Auto) 80.0 H (34.0-71.1) % Lymph % (Auto) 12.4 L (19.3-51.7) % Garza % (Auto) 6.5 (4.7-12.5) % Eos % (Auto) 0.4 L (0.7-5.8) Baso % (Auto) 0.4 (0.1-1.2) % Neut # (Auto) 5.37 (1.56-6.13) K/mm3 Lymph # (Auto) 0.83 L (1.18-3.74) K/mm3 Garza # (Auto) 0.44 H (0.24-0.36) K/mm3 Eos # (Auto) 0.03 L (0.04-0.36) K/mm3 Baso # (Auto) 0.03 (0.01-0.08) K/mm3 Sodium 144 (136-145) mEq/L Potassium 4.4 (3.5-5.1) mEq/L Chloride 109 H (98-107) mEq/L Carbon Dioxide 25 (21-32) mEq/L Anion Gap 14.4 (5-15) BUN 16 (7-18) mg/dL Creatinine 0.8 (0.55-1.02) mg/dL Est Cr Clr Drug Dosing 49.14 mL/min Estimated GFR (MDRD) > 60 (>60) mL/min BUN/Creatinine Ratio 20.0 H (14-18) Glucose 94 (70-99) mg/dL Calcium 8.3 L (8.5-10.1) mg/dL Magnesium 2.2 (1.8-2.4) mg/dL Iron 32 L (50-170) ug/dL TIBC 266 (100-400) ug/dL % Saturation 12 L (20-55) % Transferrin 213 (202-364) mg/dL Total Bilirubin 0.2 (0.2-1.0) mg/dL AST 15 (15-37) U/L ALT 17 (14-59) U/L Alkaline Phosphatase 44 L (46-116) U/L Troponin I < 0.017 (0.00-0.056) ng/mL Total Protein 6.2 L (6.4-8.2) g/dl Albumin 3.4 (3.4-5.0) g/dl Globulin 2.8 gm/dL Albumin/Globulin Ratio 1.2 (1-2) Result Diagrams: 11/08/20 15:02 11/08/20 15:02 Sepsis Event Note - Evaluation Sepsis Screening Result: No Definite Risk - Focused Exam Vital Signs: Vital Signs Temp Pulse Resp BP Pulse Ox 11/08/20 14:20 35.8 C L 70 14 134/67 98 Problem List Initiated/Reviewed/Updated: Yes Orders Last 24hrs: Active Orders 24 hr Category Date Time Status Patient Status [ADT] Routine ADT 11/08/20 17:14 Active Activity as Tolerated [RC] .Routine Care 11/08/20 17:14 Active Antiembolic Devices [RC] PER UNIT ROUTINE Care 11/08/20 17:15 Active Cardiac Monitoring [RC] . DIRECTED Care 11/08/20 14:41 Active EKG Documentation Completion [RC] STAT Care 11/08/20 14:42 Active Oxygen Therapy [RC] PRN Care 11/08/20 17:14 Active Peripheral IV Care [RC] . DIRECTED Care 11/08/20 14:42 Active RT Incentive Spirometry [RC] Q1HWA Care 11/08/20 17:14 Active Vital Signs [RC] Q4H Care 11/08/20 17:14 Active Clear Liquid Diet [DIET] Diet 11/08/20 Breakfast Active Nothing Per Oral Diet [DIET] Diet 11/09/20 Breakfast Active BASIC METABOLIC PANEL,BMP [CHEM] AM Lab 11/09/20 05:11 Ordered CBC WITH AUTO DIFF [HEME] AM Lab 11/09/20 05:11 Ordered CORONAVIRUS COVID-19 ZO [MOLEC] Stat Lab 11/08/20 17:02 Ordered KCl/Na Sulf,Bicarb,Cl/PEG 3351 [GoLytely] Med 11/08/20 17:18 Once 4,000 ml PO ONETIME ONE Lactated Ringers [Ringers, Lactated] 1,000 ml Med 11/08/20 17:15 Ordered IV ASDIRECTED Levothyroxine [Synthroid] Med 11/11/20 17:17 Ordered 44 mcg PO TUTH Levothyroxine [Synthroid] Med 11/08/20 17:30 Ordered 88 mcg PO SUMOWEFRSA Sodium Chloride 0.9% [Normal Saline] 500 ml Med 11/08/20 14:45 Active IV .BOLUS Sodium Chloride 0.9% [Saline Flush] Med 11/08/20 14:41 Active 10 ml FLUSH ASDIRECTED PRN Peripheral IV Insertion Adult [OM.PC] Stat Oth 11/08/20 14:41 Ordered Schedule Procedure [COMM] Routine Oth 11/09/20 08:00 Ordered Sequential Compression Device [OM.PC] Routine Oth 11/08/20 17:14 Ordered Resuscitation Status Routine Resus Stat 11/08/20 17:14 Ordered Medication Orders Sodium Chloride (Normal Saline) 500 mls @ 1,000 mls/hr IV .BOLUS ARTHUR Last Admin: 11/08/20 15:00 Dose: 1,000 mls/hr Documented by: SEBASTIAN Lactated Ringer's (Ringers, Lactated) 1,000 mls @ 100 mls/hr IV ASDIRECTED ARTHUR Levothyroxine Sodium (Levothyroxine 88 Mcg Tab) 44 mcg PO TUTH ARTHUR Levothyroxine Sodium (Levothyroxine 88 Mcg Tab) 88 mcg PO SUMOWEFRSA ARTHUR Polyethylene Glycol/Electrolytes (Polyethylene Glycol/Electrolytes 4,000 Ml Bottle) 4,000 ml PO ONETIME ONE Stop: 11/08/20 17:19 Sodium Chloride (Sodium Chloride 0.9% 10 Ml Syringe) 10 ml FLUSH ASDIRECTED PRN PRN Reason: Keep Vein Open Last Admin: 11/08/20 15:00 Dose: 10 ml Documented by: SEBASTIAN Assessment/Plan Comment:: Evidence of GI bleed, with iron deficiency anemia and positive FOBT. No high risk medications identified. Normal colonoscopy a year and a half ago. Source is likely related to stress gastritis. I discussed recommendations with patient including admission for observation, fluid resuscitation, repeat labs in AM and diagnostic esophagogastroduodenoscopy and colonoscopy in AM. She and family are in agreement. - Mortality Measure Prognosis:: Good
[2020-11-08] MEDS: Lactated Ringers 1,000 ML IV SCH (20:38)
[2020-11-08] MEDS: Levothyroxine 88 MCG Tab PO SCH (21:53)
[2020-11-09] MEDS: Lactated Ringers 1,000 ML IV SCH (06:21)
[2020-11-09] MEDS: Levothyroxine 88 MCG Tab PO SCH (06:21)
--- NOTE | 2020-11-09 07:04 | PCM.PREANE ---
Preanesthetic Assessment - Procedure Proposed Procedure: Diagnostic EGD Diagnostic Colonoscopy - Anesthesia/Transfusion/Family Hx Anesthesia History: Prior Anesthesia Without Reaction Type of Anesthesia Reaction: Excessive Nausea/Vomiting Family History of Anesthesia Reaction: Yes (slow waking up) Transfusion History: No Prior Transfusion(s) Intubation History: Unknown - Review of Systems General: No Symptoms, Weakness, Fatigue, Malaise Pulmonary: No Symptoms Cardiovascular: No Symptoms, Palpitations (anxiety) Gastrointestinal: No Symptoms (?Stress Gastritis: recent of one month ago./occasional tums for GERD), Constipation (Chronic), Decreased Appetite, Melena Neurological: No Symptoms (vertigo) Other: Reports: Thyroid Problems (Hypothyroidism), Neck Pain (patient has history of C6-7 fusion.), Depression (situational), Anxiety - Physical Assessment NPO Status Date: 11/09/20 NPO Status Time: 11:20 Vital Signs: Last Vital Signs Temp 37.3 C 11/09/20 04:24 Pulse 72 11/09/20 04:24 Resp 16 11/09/20 04:24 BP 97/57 L 11/09/20 04:24 Pulse Ox 100 11/09/20 04:24 Height: 1.6 m Weight: 50.984 kg ASA Class: 2E Mental Status: Alert & Oriented x3 Airway Class: Mallampati = 2 Dentition: Reports: Normal Dentition, [place](s), [place]ies Thyro-Mental Finger Breadths: 3 Mouth Opening Finger Breadths: 3 ROM/Head Extension: Full Lungs: Clear to Auscultation, Normal Respiratory Effort Cardiovascular: Regular Rate, Regular Rhythm, No Murmurs - Lab Values: Laboratory Last Values WBC 4.20 K/mm3 (3.98-10.04) 11/09/20 06:10 RBC 2.70 M/mm3 (3.98-5.22) L 11/09/20 06:10 Hgb 8.4 gm/dl (11.2-15.7) L 11/09/20 06:10 Hct 26.9 % (34.1-44.9) L 11/09/20 06:10 MCV 99.6 fl (79.4-94.8) H 11/09/20 06:10 MCH 31.1 pg (25.6-32.2) 11/09/20 06:10 MCHC 31.2 g/dl (32.2-35.5) L 11/09/20 06:10 RDW Std Deviation 49.6 fL (36.4-46.3) H 11/09/20 06:10 Plt Count 264 K/mm3 (182-369) 11/09/20 06:10 MPV 9.2 fl (9.4-12.3) L 11/09/20 06:10 Neut % (Auto) 69.3 % (34.0-71.1) 11/09/20 06:10 Lymph % (Auto) 23.3 % (19.3-51.7) 11/09/20 06:10 Coleman % (Auto) 6.2 % (4.7-12.5) 11/09/20 06:10 Eos % (Auto) 0.5 (0.7-5.8) L 11/09/20 06:10 Baso % (Auto) 0.5 % (0.1-1.2) 11/09/20 06:10 Neut # (Auto) 2.91 K/mm3 (1.56-6.13) 11/09/20 06:10 Lymph # (Auto) 0.98 K/mm3 (1.18-3.74) L 11/09/20 06:10 Coleman # (Auto) 0.26 K/mm3 (0.24-0.36) 11/09/20 06:10 Eos # (Auto) 0.02 K/mm3 (0.04-0.36) L 11/09/20 06:10 Baso # (Auto) 0.02 K/mm3 (0.01-0.08) 11/09/20 06:10 Sodium 148 mEq/L (136-145) H 11/09/20 06:10 Potassium 3.6 mEq/L (3.5-5.1) 11/09/20 06:10 Chloride 111 mEq/L (98-107) H 11/09/20 06:10 Carbon Dioxide 27 mEq/L (21-32) 11/09/20 06:10 Anion Gap 13.6 (5-15) 11/09/20 06:10 BUN 8 mg/dL (7-18) 11/09/20 06:10 Creatinine 0.7 mg/dL (0.55-1.02) 11/09/20 06:10 Est Cr Clr Drug Dosing 55.03 mL/min 11/09/20 06:10 Estimated GFR (MDRD) > 60 mL/min (>60) 11/09/20 06:10 BUN/Creatinine Ratio 11.4 (14-18) L 11/09/20 06:10 Glucose 100 mg/dL (70-99) H 11/09/20 06:10 Calcium 8.2 mg/dL (8.5-10.1) L 11/09/20 06:10 Magnesium 2.2 mg/dL (1.8-2.4) 11/08/20 15:02 Iron 32 ug/dL (50-170) L 11/08/20 15:02 TIBC 266 ug/dL (100-400) 11/08/20 15:02 % Saturation 12 % (20-55) L 11/08/20 15:02 Transferrin 213 mg/dL (202-364) 11/08/20 15:02 Total Bilirubin 0.2 mg/dL (0.2-1.0) 11/08/20 15:02 AST 15 U/L (15-37) 11/08/20 15:02 ALT 17 U/L (14-59) 11/08/20 15:02 Alkaline Phosphatase 44 U/L (46-116) L 11/08/20 15:02 Troponin I < 0.017 ng/mL (0.00-0.056) 11/08/20 15:02 Total Protein 6.2 g/dl (6.4-8.2) L 11/08/20 15:02 Albumin 3.4 g/dl (3.4-5.0) 11/08/20 15:02 Globulin 2.8 gm/dL 11/08/20 15:02 Albumin/Globulin Ratio 1.2 (1-2) 11/08/20 15:02 SARS-CoV-2 RNA (ZO) Negative (NEGATIVE) 11/08/20 18:50 Above labs reviewed and noted and within acceptable ranges to proceed with procedure. - Allergies Allergies/Adverse Reactions: Allergies Allergy/AdvReac Type Severity Reaction Status Date / Time chlorzoxazone Allergy Severe Rash Verified 11/08/20 14:27 [From Parafon Forte] doxycycline [From Vibramycin] Allergy Severe Rash Verified 11/08/20 14:27 Iodinated Contrast Media Allergy Severe Hives Verified 11/08/20 14:27 nitrofurantoin Allergy Severe Hives Verified 11/08/20 14:27 [From Macrobid] ofloxacin [From Floxin] Allergy Severe Rash Verified 11/08/20 14:27 phenazopyridine [From Azo] Allergy Severe Rash Verified 11/08/20 14:27 Sulfa (Sulfonamide Allergy Severe Hives Verified 11/08/20 14:27 Antibiotics) Gadolinium-Containing AdvReac Severe Vomiting Verified 11/08/20 14:27 Contrast Medi - Anesthesia Plan Pre-Op Medication Ordered: None - Acknowledgements Anesthesia Type Planned: MAC Pt an Appropriate Candidate for the Planned Anesthesia: Yes Alternatives and Risks of Anesthesia Discussed w Pt/Guardian: Yes Pt/Guardian Understands and Agrees with Anesthesia Plan: Yes PreAnesthesia Questionnaire HEENT History: Reports: Impaired Vision, Other (See Below) Other HEENT History: cataract surgery, wears glasses, history of burning tongue syndrome Cardiovascular History: Reports: Other (See Below) Other Cardiovascular History: chest wall pain Respiratory History: Reports: None Gastrointestinal History: Reports: Chronic Constipation, Colon Polyp Genitourinary History: Reports: None [employer] History: Reports: Other (See Below) Other OB/BYN History: atrophic vaginitis Musculoskeletal History: Reports: Osteoporosis Neurological History: Reports: None Psychiatric History: Reports: Other (See Below) Other Psychiatric History: contact dermatitis, herpes zoster, onchomycosis, skin infection Endocrine/Metabolic History: Reports: Hypothyroidism Hematologic History: Reports: None Immunologic History: Reports: None Oncologic (Cancer) History: Reports: Other (See Below) Other Oncologic History: endometrial cancer Dermatologic History: Reports: Other (See Below) Other Dermatologic History: contact dermatitis, herpes zoster, onchomycosis, skin infection - Infectious Disease History Infectious Disease History: Reports: Chicken Pox, Influenza, Shingles - Past Surgical History Head Surgeries/Procedures: Reports: None HEENT Surgical History: Reports: Cataract Surgery Cardiovascular Surgical History: Reports: None Respiratory Surgical History: Reports: None GI Surgical History: Reports: Appendectomy, Colonoscopy Female Surgical History: Reports: Hysterectomy, Oophorectomy Endocrine Surgical History: Reports: None Neurological Surgical History: Reports: None Musculoskeletal Surgical History: Reports: Other (See Below) Other Musculoskeletal Surgeries/Procedures:: foot surgery, neck surgery Oncologic Surgical History: Reports: Other (See Below) Other Oncologic Surgeries/Procedures: hysterectomy Dermatological Surgical History: Reports: None - SUBSTANCE USE Tobacco Use Status *Q: Never Tobacco User Second Hand Smoke Exposure: Yes Recreational Drug Use History: No - HOME MEDS Home Medications: Home Meds Alendronate [Fosamax] 35 mg PO Q7D 04/09/19 [History] Aspirin [Ecotrin EC] 81 mg PO DAILY 04/09/19 [History] Calcium Carbonate/Vitamin D3 [Calcium 600-Vit D3 500 Softgel] 1 cap PO TID 04/09/19 [History] Flaxseed 1 dose PO QAM 04/09/19 [History] Levothyroxine [Synthroid] 44 mcg PO TUTH 04/09/19 [History] Levothyroxine [Synthroid] 88 mcg PO SUMOWEFRSA 04/09/19 [History] Lutein 10 mg PO DAILY 04/09/19 [History] Multivitamin [Daily Armand] 1 tab PO DAILY 04/09/19 [History] Psyllium Husk [Metamucil] 1 dose PO QAM 04/09/19 [History] - CURRENT (IN HOUSE) MEDS Current Meds: Current Medications Sodium Chloride (Normal Saline) 500 mls @ 1,000 mls/hr IV .BOLUS [facility] Last Admin: 11/08/20 15:00 Dose: 1,000 mls/hr Documented by: Lactated Ringer's (Ringers, Lactated) 1,000 mls @ 100 mls/hr IV ASDIRECTED [facility] Last Admin: 11/09/20 06:21 Dose: 100 mls/hr Documented by: Levothyroxine Sodium (Levothyroxine 88 Mcg Tab) 44 mcg PO TuTh@0600 [facility] Levothyroxine Sodium (Levothyroxine 88 Mcg Tab) 88 mcg PO SuMoWeFrSa@0600 [facility] Last Admin: 11/09/20 06:21 Dose: Not Given Documented by: Sodium Chloride (Sodium Chloride 0.9% 10 Ml Syringe) 10 ml FLUSH ASDIRECTED PRN PRN Reason: Keep Vein Open Last Admin: 11/08/20 15:00 Dose: 10 ml Documented by: Discontinued Medications Polyethylene Glycol/Electrolytes (Polyethylene Glycol/Electrolytes 4,000 Ml Bottle) 4,000 ml PO ONETIME ONE Stop: 11/08/20 17:19 Last Admin: 11/08/20 21:53 Dose: Not Given Documented by: Polyethylene Glycol/Electrolytes (Polyethylene Glycol/Electrolytes 4,000 Ml Bottle) 4,000 ml PO ONETIME ONE Stop: 11/08/20 21:46 Last Admin: 11/08/20 21:52 Dose: 4,000 ml Documented by:
[2020-11-09] MEDS ORDERED: Lactated Ringers 1,000 ML ONE ×2 (07:14→07:52)
[2020-11-09] MEDS ORDERED: Lidocaine 1% 4 ML ONE (07:14)
[2020-11-09] MEDS ORDERED: Propofol 200 MG/20 ML SDV ONE ×2 (07:14→08:16)
[2020-11-09] MEDS ORDERED: fentaNYL 100 MCG/2 ML SDV ONE (07:14)
[2020-11-09] MEDS ORDERED: Ondansetron 4 MG/2 ML SDV ONE (07:49)
[2020-11-09] MEDS ORDERED: diphenhydrAMINE 50 MG/ML SDV IVPUSH PRN (07:55)
[2020-11-09] MEDS ORDERED: Ondansetron 4 MG/2 ML SDV IVPUSH PRN (07:55)
--- NOTE | 2020-11-09 08:36 | PCM48HPAN ---
Post Anesthesia Note - EVALUATION WITHIN 48HRS OF ANESTHETIC Vital Signs in Normal Range: Yes Patient Participated in Evaluation: Yes Respiratory Function Stable: Yes Airway Patent: Yes Cardiovascular Function Stable: Yes Hydration Status Stable: Yes Pain Control Satisfactory: Yes Nausea and Vomiting Control Satisfactory: Yes Mental Status Recovered: Yes Vital Signs: Last Vital Signs Temp 98.5 11/09/20 0834 Pulse 86 11/09/20 0834 Resp 17 11/09/20 0834 BP 104/54 11/09/20 0834 Pulse Ox 97 11/09/20 0934
--- NOTE | 2020-11-09 08:44 | PCM.PRNOTE ---
- Free Text/Narrative Note: Date: 11/09/2020 Procedure(s): diagnostic esophagogastroduodenoscopy, colonoscopy Indication: symptomatic iron deficiency anemia with reported melena Endoscopist: Eddie Jarvis MD Findings: no old blood or sign of active hemorrhage. Discrete small ulcer with clean base noted at posterior aspect of antrum. Small sliding hiatal hernia. A few small diverticula noted in the sigmoid colon with minor internal hemorrhoidal disease. Detailed Report: The patient was taken to the endoscopy suite and placed in left lateral decubitus position. Timeout was performed and monitored anesthesia care was initiated. A bite-block was placed. The endoscope was inserted into the mouth and advanced to the distal duodenum. Duodenal mucosa appeared normal with no evidence of old blood, active hemorrhage or ulceration. The scope was withdrawn into the antrum. There was some prominent ridge near the pylorus with polypoid surface appearance which was biopsied with cold forceps. Adjacent to this tissue was a small discrete ulcer with clean base. There was no visible vessel or sign of prior hemorrhage. Biopsies were obtained from the edge of the ulcer with cold forceps. On retroflexion, there appeared to be scattered petechia of the cardia of the stomach and a small sliding hiatal hernia. The scope was withdrawn into the distal esophagus. A biopsy was obtained of the gastroesophageal junction. The remainder of the esophagus appeared normal. Air was suctioned from the stomach prior to withdrawal of the scope. Next, attention was turned to colonoscopy. Inspection of the anus was unremarkable, and digital rectal exam was unremarkable. The colonoscope was inserted and advanced all the way to the cecum. The prep was excellent. The ileocecal valve was visualized. The scope was slowly withdrawn and mucosal surfaces carefully inspected. There was no evidence of prior or active hemorrhage. No polyps were identified. There were a few small scattered diverticula confined to the bounds of the sigmoid colon. On retroflexion within the rectum, minor internal hemorrhoidal disease was appreciated. Air was suctioned from the rectum prior to withdrawal of the scope. The patient tolerated the procedure well.
--- NOTE | 2020-11-09 08:50 | PCM.SN.2 ---
- Free Text/Narrative Note: HD 2 admitted with symptomatic iron deficiency anemia. Underwent EGD and colonoscopy this morning with no active hemorrhage or old blood noted, with gastric ulcer. S: still feeling weak and shaky this morning. Did okay with bowel prep. No melena or blood per rectum since admission. O: AF-HR 70s, was 90's during endoscopy, last recorded BP 90s/50s, SpO2 100% on room air Awake and alert, no distress RRR Breathing comfortably on room air Abd soft, nontender Hgb down to 8.4 g/dL from 9.2 on admission A: GI bleed, probably from identified gastric ulcer. Drop in Hgb since admission appears to at least in part be due to hemodilution with fluid resuscitation. Still symptomatic this morning with shakiness and fatigue. P: Protonix 40 mg PO BID with sucralfate for gastric ulcer avoid NSAID medication Clear liquid diet Shira transfuse 1 u pRBC, recheck CBC this evening
[2020-11-09] MEDS ORDERED: Sodium Chloride 0.9% 250 ML IV SCH (10:45)
[2020-11-09] MEDS: Sucralfate 1 GM Tab PO SCH ×3 (10:52→21:18)
[2020-11-09] MEDS: Pantoprazole 40 MG Tab.CR PO SCH (16:02)
[2020-11-09] MEDS ORDERED: D5 1/2 NS w/ 20 mEq/L KCl 1,000 ML IV SCH (18:45)
[2020-11-10] MEDS ORDERED: diphenhydrAMINE 50 MG/ML SDV IVPUSH ONE ×2 (07:25→09:45)
--- NOTE | 2020-11-10 07:33 | PCM.SN.2 ---
- Free Text/Narrative Note: 74 yo woman presenting with symptomatic anemia and reported melena. Gastric ulcer noted on EGD; no abnormal findings on colonoscopy. Transfused 1 u pRBC with good response yesterday. S: feeling better this morning, no issues overnight O: AF- HR 60s-70s, BP 90s/50s, SpO2 100% on room air Hgb 9.3 g/dL, same as last evening Awake and alert, no distress breathing comfortably on room air abdomen soft, nontender A: Symptomatic iron deficiency anemia with reported melena, with evidence fo peptic ulcer on EGD Improved with PPI, sucralfate P: Discussed CT abd/pelvis with contrast given no evidence of old blood or active hemorrhage on endoscopy. Patient has prior reaction of hives with contrast, relieved with benadryl. Premedicate with 50 mg IV benadryl [address] abd/pelvis with IV contrast. Anticipate discharge to home later today if patient feels ready.
[2020-11-10] MEDS ORDERED: Iopamidol 755 Mg/ML 100 ML Bottle IVPUSH ONE (10:21)
[2020-11-10] MEDS ORDERED: Iopamidol 755 MG/ML 50 ML Bottle IVPUSH ONE (10:21)
[2020-11-10] MEDS ORDERED: Sodium Chloride 0.9% 100 ML IV SCH (10:30)
[2020-11-10] MEDS ORDERED: Sodium Chloride 0.9% 10 ML Syringe FLUSH SCH (10:30)
--- NOTE | 2020-11-10 11:52 | PCM.DCSUM1 ---
Discharge Summary - Hospital Course Free Text/Narrative:: Mrs. Palm was admitted on 11/08 with shakiness and weakness, with findings of iron deficiency anemia. Hgb was 9.2 g/dL on arrival and 8.4 the following morning. She underwent diagnostic EGD and colonoscopy and was found to have a non-bleeding gastric ulcer. She was kept on protonix bid and carafate. She was transfused 1 u pRBC with good response and Hgb was stable at 9.3 g/dL that evening and the following morning. Due to the fact that the patient did not have any evidence of old blood or active hemorrhage on endoscopy, a CT scan of the abdomen and pelvis was obtained, which did not show any worrisome finding to explain her anemia. She was deemed fit for discharge to home on hospital day 3. Diagnosis: Stroke: No Modified [place] Scale: No Symptoms at All Modified [place] Scale Score: 0 - Discharge Data Discharge Date: 11/10/20 Discharge Disposition: Home, Self-Care 01 Condition: Good - Referral to Home Health Primary Care Physician: Kathy Keller NP - Patient Summary/Data Operative Procedure(s) Performed: EGD/colonoscopy - Patient Instructions Diet: Usual Diet as Tolerated Activity: As Tolerated - Discharge Plan *PRESCRIPTION DRUG MONITORING PROGRAM REVIEWED*: Not Applicable *COPY OF PRESCRIPTION DRUG MONITORING REPORT IN PATIENT CRESCENCIO: Not Applicable Home Medications: Home Meds Alendronate [Fosamax] 35 mg PO Q7D 04/09/19 [History] Aspirin [Ecotrin EC] 81 mg PO DAILY 04/09/19 [History] Calcium Carbonate/Vitamin D3 [Calcium 600-Vit D3 500 Softgel] 1 cap PO TID 04/09/19 [History] Flaxseed 1 dose PO QAM 04/09/19 [History] Levothyroxine [Synthroid] 44 mcg PO TUTH 04/09/19 [History] Levothyroxine [Synthroid] 88 mcg PO SUMOWEFRSA 04/09/19 [History] Lutein 10 mg PO DAILY 04/09/19 [History] Multivitamin [Daily Armand] 1 tab PO DAILY 04/09/19 [History] Psyllium Husk [Metamucil] 1 dose PO QAM 04/09/19 [History] Referrals: Kathy Keller NP [Primary Care Provider] - - Discharge Summary/Plan Comment DC Time >30 min.: No - Patient Data Vitals - Most Recent: Last Vital Signs Temp 37.0 C 11/10/20 07:50 Pulse 63 11/10/20 07:50 Resp 16 11/10/20 07:50 BP 101/57 L 11/10/20 07:50 Pulse Ox 98 11/10/20 07:50 Weight - Most Recent: 52.163 kg I&O - Last 24 hours: Intake & Output 11/09/20 11/10/20 11/10/20 22:59 06:59 14:59 Intake Total 1247 950 Balance 1247 950 Lab Results - Last 24 hrs: Laboratory Results - last 24 hr 11/09/20 11/09/20 11/10/20 Range/Units 06:10 17:10 05:35 WBC 6.48 4.88 (3.98-10.04) K/mm3 RBC 2.93 L 2.95 L (3.98-5.22) M/mm3 Hgb 9.3 L 9.3 L (11.2-15.7) gm/dl Hct 29.0 L 29.5 L (34.1-44.9) % MCV 99.0 H 100.0 H (79.4-94.8) fl MCH 31.7 31.5 (25.6-32.2) pg MCHC 32.1 L 31.5 L (32.2-35.5) g/dl RDW Std Deviation 50.4 H 52.9 H (36.4-46.3) fL Plt Count 233 250 (182-369) K/mm3 MPV 9.2 L 9.5 (9.4-12.3) fl Neut % (Auto) 72.9 H 71.0 (34.0-71.1) % Lymph % (Auto) 19.8 16.8 L (19.3-51.7) % Grant % (Auto) 6.2 9.2 (4.7-12.5) % Eos % (Auto) 0.6 L 2.0 (0.7-5.8) Baso % (Auto) 0.3 0.6 (0.1-1.2) % Neut # (Auto) 4.73 3.46 (1.56-6.13) K/mm3 Lymph # (Auto) 1.28 0.82 L (1.18-3.74) K/mm3 Grant # (Auto) 0.40 H 0.45 H (0.24-0.36) K/mm3 Eos # (Auto) 0.04 0.10 (0.04-0.36) K/mm3 Baso # (Auto) 0.02 0.03 (0.01-0.08) K/mm3 Sodium (136-145) mEq/L Potassium (3.5-5.1) mEq/L Chloride (98-107) mEq/L Carbon Dioxide (21-32) mEq/L Anion Gap (5-15) BUN (7-18) mg/dL Creatinine (0.55-1.02) mg/dL Est Cr Clr Drug Dosing mL/min Estimated GFR (MDRD) (>60) mL/min BUN/Creatinine Ratio (14-18) Glucose (70-99) mg/dL Calcium (8.5-10.1) mg/dL Crossmatch See Detail 11/10/20 Range/Units 05:35 WBC (3.98-10.04) K/mm3 RBC (3.98-5.22) M/mm3 Hgb (11.2-15.7) gm/dl Hct (34.1-44.9) % MCV (79.4-94.8) fl MCH (25.6-32.2) pg MCHC (32.2-35.5) g/dl RDW Std Deviation (36.4-46.3) fL Plt Count (182-369) K/mm3 MPV (9.4-12.3) fl Neut % (Auto) (34.0-71.1) % Lymph % (Auto) (19.3-51.7) % Grant % (Auto) (4.7-12.5) % Eos % (Auto) (0.7-5.8) Baso % (Auto) (0.1-1.2) % Neut # (Auto) (1.56-6.13) K/mm3 Lymph # (Auto) (1.18-3.74) K/mm3 Grant # (Auto) (0.24-0.36) K/mm3 Eos # (Auto) (0.04-0.36) K/mm3 Baso # (Auto) (0.01-0.08) K/mm3 Sodium 147 H (136-145) mEq/L Potassium 3.6 (3.5-5.1) mEq/L Chloride 113 H (98-107) mEq/L Carbon Dioxide 26 (21-32) mEq/L Anion Gap 11.6 (5-15) BUN 5 L (7-18) mg/dL Creatinine 0.7 (0.55-1.02) mg/dL Est Cr Clr Drug Dosing 55.03 mL/min Estimated GFR (MDRD) > 60 (>60) mL/min BUN/Creatinine Ratio 7.1 L (14-18) Glucose 98 (70-99) mg/dL Calcium 7.8 L (8.5-10.1) mg/dL Crossmatch Med Orders - Current: Current Medications Diphenhydramine HCl (Diphenhydramine 50 Mg/Ml Sdv) 25 mg IVPUSH Q6H PRN PRN Reason: pruritis Sodium Chloride (Normal Saline) 250 mls @ 100 mls/hr IV ASDIRECTED [facility] Last Admin: 11/09/20 10:58 Dose: 100 mls/hr Documented by: Sodium Chloride (Normal Saline) 100 mls @ 60 mls/hr IV ASDIRECTED [facility] Stop: 11/10/20 14:00 Levothyroxine Sodium (Levothyroxine 88 Mcg Tab) 44 mcg PO TuTh@0600 [facility] Levothyroxine Sodium (Levothyroxine 88 Mcg Tab Own Med) 88 mcg PO SuMoWeFrSa@0600 [facility] Ondansetron HCl (Ondansetron 4 Mg/2 Ml Sdv) 4 mg IVPUSH ONETIME PRN PRN Reason: Nausea/Vomiting Pantoprazole Sodium (Pantoprazole 40 Mg Tab.Cr) 40 mg PO BIDAC [facility] Last Admin: 11/09/20 16:02 Dose: 40 mg Documented by: Sodium Chloride (Sodium Chloride 0.9% 10 Ml Syringe) 10 ml FLUSH ASDIRECTED PRN PRN Reason: Keep Vein Open Last Admin: 11/08/20 15:00 Dose: 10 ml Documented by: Sodium Chloride (Sodium Chloride 0.9% 10 Ml Syringe) 10 ml FLUSH ASDIRECTED [facility] Stop: 11/10/20 14:00 Sucralfate (Sucralfate 1 Gm Tab) 1 gm PO QIDACANDBED [facility] Last Admin: 11/09/20 21:18 Dose: 1 gm Documented by: Discontinued Medications Diphenhydramine HCl (Diphenhydramine 50 Mg/Ml Sdv) 50 mg IVPUSH ONETIME ONE Stop: 11/10/20 09:46 Last Admin: 11/10/20 09:41 Dose: 50 mg Documented by: Fentanyl (Fentanyl 100 Mcg/2 Ml Sdv) Confirm Administered Dose 100 mcg .ROUTE .STK-MED ONE Stop: 11/09/20 07:15 Sodium Chloride (Normal Saline) 500 mls @ 1,000 mls/hr IV .BOLUS [facility] Last Admin: 11/08/20 15:00 Dose: 1,000 mls/hr Documented by: Lactated Ringer's (Ringers, Lactated) 1,000 mls @ 100 mls/hr IV ASDIRECTED [facility] Last Admin: 11/09/20 06:21 Dose: 100 mls/hr Documented by: Lidocaine HCl (Xylocaine-Mpf 1%) Confirm Administered Dose 4 mls @ as directed .ROUTE .[facility] ONE Stop: 11/09/20 07:15 Lactated Ringer's (Ringers, Lactated) Confirm Administered Dose 1,000 mls @ as directed .ROUTE .K-MED ONE Stop: 11/09/20 07:15 Lactated Ringer's (Ringers, Lactated) Confirm Administered Dose 1,000 mls @ as directed .ROUTE .K-MED ONE Stop: 11/09/20 07:53 Potassium Chloride/Dextrose/Sod Cl (D5 1/2 Ns W/ 20 Meq/L Kcl) 1,000 mls @ 50 mls/hr IV ASDIRECTED [facility] Last Admin: 11/09/20 18:58 Dose: 50 mls/hr Documented by: Iopamidol (Iopamidol 755 Mg/Ml 50 Ml Bottle) 50 ml IVPUSH ONETIME ONE Stop: 11/10/20 10:22 Iopamidol (Iopamidol 755 Mg/Ml 100 Ml Bottle) 100 ml IVPUSH ONETIME ONE Stop: 11/10/20 10:22 Levothyroxine Sodium (Levothyroxine 88 Mcg Tab) 88 mcg PO SuMoWeFrSa@0600 [facility] Last Admin: 11/09/20 06:21 Dose: Not Given Documented by: Ondansetron HCl (Ondansetron 4 Mg/2 Ml Sdv) Confirm Administered Dose 4 mg .ROUTE .STK-MED ONE Stop: 11/09/20 07:50 Polyethylene Glycol/Electrolytes (Polyethylene Glycol/Electrolytes 4,000 Ml Bottle) 4,000 ml PO ONETIME ONE Stop: 11/08/20 17:19 Last Admin: 11/08/20 21:53 Dose: Not Given Documented by: Polyethylene Glycol/Electrolytes (Polyethylene Glycol/Electrolytes 4,000 Ml Bottle) 4,000 ml PO ONETIME ONE Stop: 11/08/20 21:46 Last Admin: 11/08/20 21:52 Dose: 4,000 ml Documented by: Propofol (Propofol 200 Mg/20 Ml Sdv) Confirm Administered Dose 400 mg .ROUTE .STK-MED ONE Stop: 11/09/20 07:15 Propofol (Propofol 200 Mg/20 Ml Sdv) Confirm Administered Dose 200 mg .ROUTE .STK-MED ONE Stop: 11/09/20 08:17
--- NOTE | 2020-11-10 12:08 | CT ---
CT abdomen and pelvis (without and with intravenous contrast) Technique: Multiple axial sections were obtained from above the dome of the diaphragm inferiorly through the pubic symphysis. Study was initially obtained without IV or oral contrast. Intravenous contrast was utilized during arterial phase. Images were then obtained during the venous phase as well as 5-minute delayed images. Reconstructed coronal and axial images were obtained. Findings: Scattered atheromatous change is seen within the abdominal aorta. Distally the abdominal aorta appears slightly ectatic with an AP dimension of 2.0 cm. Additional atheromatous change is noted within the common iliac and external iliac arteries without focal areas of stenosis. Celiac axis and superior mesenteric arteries appear to be patent. Single renal arteries are noted on both sides which show no focal stenosis. Inferior mesenteric artery is patent without focal stenosis. There is contrast enhancement being seen within the inferior vena cava as well as iliac vessels on portal phase imaging. Adrenal glands show no discrete abnormality. Pancreas is within normal limits. Gallbladder shows no definite calcified gallstones. Kidneys show symmetric contrast enhancement. No hydronephrosis or mass is seen. Delayed images show contrast within the ureters and within the bladder. No pelvic mass or adenopathy is seen. No free fluid or inflammatory change is appreciated. Appendix is not definitely visualized. Small amount of free fluid is seen within the pelvis which is nonspecific Impression: 1. Atherosclerotic change is seen within the abdominal vessels but no focal area of stenosis is seen within the abdominal aorta, superior mesenteric, celiac axis, renal arteries or inferior mesenteric arteries. The iliac arteries also show no focal stenosis. 2. Slight atelectasis versus scarring within both lung bases. 3. Small amount of fluid within the pelvis which is nonspecific. 4. No other acute abnormality is appreciated. Diagnostic code #2
[2020-11-10] MEDS: Sucralfate 1 GM Tab PO SCH ×2 (12:34)
[2020-11-10] MEDS: Pantoprazole 40 MG Tab.CR PO SCH (12:34)
[2020-11-11] MEDS ORDERED: Levothyroxine 88 MCG Tab PO SCH (06:00)
== END 2020-11-10 14:15 | disposition home or self-care (01) ==
LOC: JD.ED 14:08 → JD.MS 19:49
PROVIDERS: ADMIT Surgery; ATTEND Surgery
DX: K57.30 Diverticulosis of large intestine without perforation or abscess without bleeding (principal); K29.50 Unspecified chronic gastritis without bleeding; D50.9 Iron deficiency anemia, unspecified; K44.9 Diaphragmatic hernia without obstruction or gangrene; K27.9 Peptic ulcer, site unspecified, unspecified as acute or chronic, without hemorrhage or perforation; K31.89 Other diseases of stomach and duodenum; K64.8 Other hemorrhoids; Z20.822 Contact with and (suspected) exposure to COVID-19; Z79.899 Other long term (current) drug therapy; Z79.82 Long term (current) use of aspirin; Z88.8 Allergy status to other drugs, medicaments and biological substances; Z88.2 Allergy status to sulfonamides; Z91.041 Radiographic dye allergy status; Z90.49 Acquired absence of other specified parts of digestive tract; Z98.890 Other specified postprocedural states
CPT/HCPCS: 36415; 36430; 43239; 45378; 74177; 80048; 80053; 83540; 83735; 84466; 84484; 85025; 86850; 86900; 86901; 86922; 93005; 96374; 99285; A9270; G0378; J1200; J2704; J3010; J3480; J7030; J7050; J7120; P9016; Q9967; U0002; 00813; 88305; 93010; 99100; J2405

== ENCOUNTER 2021-08-11 07:20 | Day surgery (SDC) | payer MEDICARE, BC ==
[~2021-08-11 07:20] MED LIST changes: -Lidocaine 1% 4 ML ONE; -Midazolam 1 MG/ML 2 ML SDV ONE; -Propofol 200 MG/20 ML SDV ONE; +Sodium Chloride 0.9% 10 ML Syringe FLUSH SCH; -fentaNYL 100 MCG/2 ML SDV ONE
[2021-08-11] MEDS ORDERED: Propofol 200 MG/20 ML SDV ONE (07:38)
[2021-08-11] MEDS ORDERED: Lidocaine 1% 4 ML ONE (07:38)
[2021-08-11] MEDS ORDERED: fentaNYL 100 MCG/2 ML SDV ONE (07:38)
== END 2021-08-11 09:40 | disposition home or self-care (01) ==
LOC: JD.SDS 07:20
PROVIDERS: ATTEND Surgery
DX: K29.50 Unspecified chronic gastritis without bleeding (principal); K29.80 Duodenitis without bleeding; K31.A0 Gastric intestinal metaplasia, unspecified; K44.9 Diaphragmatic hernia without obstruction or gangrene; E03.9 Hypothyroidism, unspecified; K21.9 Gastro-esophageal reflux disease without esophagitis; D50.9 Iron deficiency anemia, unspecified; K25.9 Gastric ulcer, unspecified as acute or chronic, without hemorrhage or perforation; Z91.041 Radiographic dye allergy status; Z88.1 Allergy status to other antibiotic agents; Z88.2 Allergy status to sulfonamides; Z88.6 Allergy status to analgesic agent; Z90.49 Acquired absence of other specified parts of digestive tract; Z98.890 Other specified postprocedural states; Z90.711 Acquired absence of uterus with remaining cervical stump; Z79.890 Hormone replacement therapy; Z79.899 Other long term (current) drug therapy
CPT/HCPCS: J2704; J3010; J7120